=== PATIENT | male | born 1945 | race Caucasian/White ===

== ENCOUNTER 2023-11-12 12:01 | Emergency (ER) | payer MEDICARE, OTHER, SELFPAY ==
[2023-11-12] VITALS (18 sets, daily range): BP systolic 104–158; BP diastolic 50–74; PULSE 32–41; RESP 20; TEMP 36.3; O2SAT 93–100; BMI 32.3
[2023-11-12 12:50] LABS: Basophils Absolute Auto 0.04 K/uL (0.00-0.30); Basophils Percent Auto 0.6 % (0.0-3.0); Eosinophils Absolute Auto 0.06 K/uL (0.00-0.50); Eosinophils Percent Auto 0.9 % (0.0-7.0); Hematocrit 39.1 % (37.0-53.0); Hemoglobin* 12.8 gm/dL (13.5-17.5); Immature Granulocytes Abs Auto 0.04 K/uL (0.00-0.30); Immature Granulocytes Pct Auto 0.6 %; Lymphocytes Percent Auto 12.1 % (20-44); Mean Corpuscular HGB Conc 33 gm/dL (32-36); Mean Corpuscular Hemoglobin 33 pg (26-34); Mean Corpuscular Volume 101 fL (80-100); Monocytes Percent Auto 5.4 % (0.0-11.0); Neutrophils Percent Auto 80.4 % (42.0-72.0); Platelet Count* 143 K/uL (140-440); RDW Coefficient of Variation % 14.7 % (11.5-15.5); Red Blood Count 3.89 m/uL (4.30-5.90); White Blood Count* 7.01 K/uL (4.50-11.00)
[2023-11-12 12:55] LABS: Slide Review Reflex No
[2023-11-12 12:59] LABS: Chloride* 104 mmol/L (96-114); Sodium* 137 mmol/L (135-149)
[2023-11-12 13:00] LABS: Potassium* 4.2 mmol/L (3.6-5.1)
[2023-11-12 13:02] LABS: Estimated Glomerular Filt Rate 78 ml/min
[2023-11-12 13:03] LABS: Anion Gap 3 mEq/L (7-15); Blood Urea Nitrogen* 39 mg/dL (7-30); Calcium* 9.1 mg/dL (8.4-10.6); Carbon Dioxide* 30 mmol/L (20-32); Glucose* 110 mg/dL (60-115); INR 1.02 (0.91-1.10); Magnesium* 1.8 mg/dL (1.5-2.6)
--- NOTE | 2023-11-12 13:06 | ED.GENADULT ---
HPI - General Adult General Chief complaint: Arrhythmia/Palpitations Stated complaint: Low heartrate Time Seen by Provider: 11/12/23 12:18 Source: patient and RN notes reviewed Mode of arrival: ambulatory Limitations: no limitations History of Present Illness HPI narrative: Patient is a 78-year-old male here with his for evaluation of bradycardia. He was at a preop appointment today and was noted to be bradycardic in the 30s. He is asymptomatic, does not notice slow heart rate, shortness of breath, weakness, lightheadedness or fainting. His says he does seem to be falling asleep a little bit easier in front of the television. No recent vomiting or diarrhea, black or bloody stools, chest pain. Note that he does take atenolol. Related Data Home Medications Medication Instructions Recorded Confirmed allopurinol 300 mg tablet 300 mg PO DAILY 11/12/23 11/12/23 atenolol 50 mg tablet mg PO 11/12/23 doxazosin 4 mg tablet 4 mg PO DAILY 11/12/23 11/12/23 losartan 100 mg tablet 100 mg PO DAILY 11/12/23 11/12/23 spironolactone 50 mg tablet mg PO 11/12/23 torsemide 20 mg tablet mg PO 11/12/23 Allergies Allergy/AdvReac Type Severity Reaction Status Date / Time No Known Drug Allergies Allergy Verified 11/12/23 12:08 Review of Systems Status of ROS: Reports: 10 or more systems reviewed and unremarkable except as noted in History and below PFSH PFSH Social History Smoking Status: Former smoker What tobacco products do you use: cigarettes Smoking quit date/years: >15 years ago Do you use any of these nicotine containing products: None Second hand tobacco smoke exposure: No How often do you have a drink containing alcohol: never How often do you have six or more drinks on one occasion: Never AUDIT-C Alcohol total score: 0 Non-prescribed substance use: denies use service: No Exam Narrative: Exam Narrative: Vital signs as noted above. In general, an alert, well-appearing patient. Head: Normocephalic, atraumatic. Eyes: Pupils are equal reactive. Extraocular movements are full. Conjunctivae are normal. ENT: Mucous membranes are moist. Throat is normal. Neck: Supple without lymphadenopathy. Heart: Bradycardic and regular, no significant murmur. Lungs: Clear bilaterally. No increased work of breathing, crackles or wheezes. Abdomen: Soft and nontender. No organomegaly. Extremities: Well perfused. No edema. No calf tenderness. Pulses intact. Neurologic: Patient is alert and oriented to person and place. Speech is fluent. Face is symmetric. Moves all extremities equally. Affect: Normal. Skin: Warm and dry. Well perfused. Const: Vital Signs, click to edit/add: Vital Signs - 24 hr 11/12/23 12:04 11/12/23 12:21 11/12/23 12:36 Temperature 97.4 F L Pulse Rate 35 L Pulse Rate [Pulse Oximeter] 38 L Respiratory Rate 20 Blood Pressure Blood Pressure [Ri ght Upper Arm] 134/69 Pulse Oximetry 99 97 98 [facility] 11/12/23 12:45 11/12/23 12:47 11/12/23 13:00 Temperature Pulse Rate 35 L 39 L 38 L Pulse Rate [Pulse Oximeter] Respiratory Rate Blood Pressure 122/61 Blood Pressure [Ri ght Upper Arm] Pulse Oximetry 98 99 96 Oxygen Delivery Ia thod 11/12/23 13:02 11/12/23 13:15 11/12/23 13:16 Temperature Pulse Rate 35 L 36 L 35 L Pulse Rate [Pulse Oximeter] Respiratory Rate Blood Pressure 104/50 L 129/64 Blood Pressure [Ri ght Upper Arm] Pulse Oximetry 98 98 98 Oxygen Delivery Ia thod 11/12/23 13:30 11/12/23 13:31 11/12/23 13:45 Temperature Pulse Rate 32 L 34 L 37 L Pulse Rate [Pulse Oximeter] Respiratory Rate Blood Pressure 133/65 Blood Pressure [Ri ght Upper Arm] Pulse Oximetry 97 97 99 Oxygen Delivery Ia thod 11/12/23 13:47 11/12/23 14:09 11/12/23 14:15 Temperature Pulse Rate 39 L 41 L 37 L Pulse Rate [Pulse Oximeter] Respiratory Rate Blood Pressure 154/74 H Blood Pressure [Ri ght Upper Arm] Pulse Oximetry 98 93 100 Oxygen Delivery Ia thod 11/12/23 14:18 11/12/23 14:30 11/12/23 14:32 Temperature Pulse Rate 36 L 37 L 37 L Pulse Rate [Pulse Oximeter] Respiratory Rate Blood Pressure 149/65 H 158/73 H Blood Pressure [Ri ght Upper Arm] Pulse Oximetry 98 96 98 Oxygen Delivery Me thod Documenting provider has reviewed patient's vital signs: yes Course Course ED Course: Patient was placed on the monitor and pacing pads were applied. He had an EKG which showed a bradycardic rhythm, it is irregularly irregular, likely atrial fibrillation with the slow ventricular response. Labs show a white count of 7, hemoglobin of 12.8, metabolic panel shows normal sodium and potassium, BUN mildly elevated at 39. Magnesium is 1.8. TSH pending at this time. He is asymptomatic, blood pressures are normal P will await the rest of his labs, I think a goods starting point would be to hold the atenolol, close primary care follow-up for reassessment. Labs are generally reassuring, white count is normal, hemoglobin slightly low at 12.8. INR is 1, electrolytes are normal, BUN mildly elevated at 39. TSH was slightly elevated at 4.26 but free T4 normal, magnesium 1.8. The patient continues to feel well. I did discuss his care with Cardiology, who agrees that with slow atrial fibrillation holding the atenolol is a good 1st step. I have asked him to follow up with his primary doctor later this week for reassessment. We did discuss anticoagulation, he would like to discuss risks benefits further with his primary doctor before starting. If at any time he becomes symptomatic, has shortness of breath, chest pain, lightheadedness or fainting, return to the emergency department. Vital Signs Vital signs: Initial Vital Signs Temperature 97.4 F L 11/12/23 12:04 Temperature Source Temporal Artery Scan 11/12/23 12:04 Pulse Rate 38 L 11/12/23 12:04 Respiratory Rate 20 11/12/23 12:04 Blood Pressure 134/69 11/12/23 12:04 Blood Pressure Mean 90 11/12/23 12:04 Blood Pressure Position Sitting 11/12/23 12:04 Pulse Oximetry 99 11/12/23 12:04 Oxygen Delivery Method Room Air 11/12/23 12:04 Vital Signs Temperature 97.4 F L 11/12/23 12:04 Pulse Rate 38 L 11/12/23 12:04 Respiratory Rate 20 11/12/23 12:04 Blood Pressure 134/69 11/12/23 12:04 Pulse Oximetry 99 11/12/23 12:04 Oxygen Delivery Method Room Air 11/12/23 12:04 Temperature 97.4 F L 11/12/23 12:04 Pulse Rate 37 L 11/12/23 14:32 Respiratory Rate 20 11/12/23 12:04 Blood Pressure 158/73 H 11/12/23 14:32 Pulse Oximetry 98 11/12/23 14:32 Oxygen Delivery Method Room Air 11/12/23 12:04 Medical Decision Making Lab Data Labs: Lab Results 11/12/23 Range/Units 12:36 WBC 7.01 (4.50-11.00) K/uL RBC 3.89 L (4.30-5.90) m/uL Hgb 12.8 L (13.5-17.5) gm/dL Hct 39.1 (37.0-53.0) % MCV 101 H (80-100) fL MCH 33 (26-34) pg MCHC 33 (32-36) gm/dL RDW Coeff of [place] 14.7 (11.5-15.5) % Plt Count 143 (140-440) K/uL Neut % (Auto) 80.4 H (42.0-72.0) % Lymph % (Auto) 12.1 L (20-44) % [place] % (Auto) 5.4 (0.0-11.0) % Eos % (Auto) 0.9 (0.0-7.0) % Baso % (Auto) 0.6 (0.0-3.0) % Neut # (Auto) 5.60 (1.7-7.0) K/uL Lymph # (Auto) 0.80 L (0.90-2.90) K/uL [place] # (Auto) 0.40 (0.00-0.90) K/UL Eos # (Auto) 0.06 (0.00-0.50) K/uL Baso # (Auto) 0.04 (0.00-0.30) K/uL Abs Immat Gran (auto) 0.04 (0.00-0.30) K/uL Imm/Tot Granulo (auto) 0.6 % INR 1.02 (0.91-1.10) Sodium 137 (135-149) mmol/L Potassium 4.2 (3.6-5.1) mmol/L Chloride 104 (96-114) mmol/L Carbon Dioxide 30 (20-32) mmol/L Anion Gap 3 L (7-15) mEq/L BUN 39 H (7-30) mg/dL Creatinine 1.0 (0.5-1.5) mg/dL Estimated Creat Clear 67.90 Estimated GFR 78 ml/min Glucose 110 (60-115) mg/dL Calcium 9.1 (8.4-10.6) mg/dL Magnesium 1.8 (1.5-2.6) mg/dL TSH 4.260 H (0.270-4.200) uIU/mL Free T4 1.13 (0.70-1.85) ng/dL Discharge Plan Discharge Clinical Impression: Atrial fibrillation, Bradycardia Patient Disposition: Home, Self-Care Condition: Stable Instructions: A-fib (Atrial Fibrillation) (ED), Bradycardia (ED) Additional Instructions: Discontinue atenolol. Please follow-up with your primary doctor later this week for reassessment of your heart rate and further discussion of anticoagulation for atrial fibrillation. If you are feeling worse at any time, have fainting spells, chest pain, difficulty breathing etcetera, return to the emergency department at any time. Prescriptions: No Action torsemide 20 mg tablet PO doxazosin 4 mg tablet 4 mg PO DAILY allopurinol 300 mg tablet 300 mg PO DAILY losartan 100 mg tablet 100 mg PO DAILY atenolol 50 mg tablet PO spironolactone 50 mg tablet PO Follow Up/Referrals: William Brunner MD [Primary Care Provider] - Stand Alone Forms: [employer] Info Instructions
[2023-11-12 14:38] LABS: Free T4 Free Thyroxine* 1.13 ng/dL (0.70-1.85)
== END 2023-11-12 14:45 | disposition home or self-care (01) ==
PROVIDERS: Emergency Provider Emergency Medicine; PCP Family Medicine
DX: R00.1 Bradycardia, unspecified (principal); I48.91 Unspecified atrial fibrillation
CPT/HCPCS: 36415; 80048; 83735; 84439; 84443; 85025; 85610; 93005; 94761; 99284